=== PATIENT | female | born 1940 | race Caucasian/White ===

== ENCOUNTER → 2016-07-27 | Outpatient (CLI) | payer OTHER, BC | LOC: BHFA 10:00 | PROVIDERS: ATTEND Internal Medicine Cardiovascular Disease | DX: I36.1 Nonrheumatic tricuspid (valve) insufficiency (principal); I25.10 Atherosclerotic heart disease of native coronary artery without angina pectoris ==

== ENCOUNTER 2016-12-15 16:56 | Emergency (ER) | payer OTHER, BC ==
[2016-12-15 17:04] VITALS: BP 143/69; PULSE 70; RESP 17; TEMP 98.2; O2SAT 94
--- NOTE | 2016-12-15 17:29 | EDPHY ---
H & P Stated Complaint: 24 HRS AGO CUT R 3RD DIGIT WITH KNIFE Time Seen by Provider: 12/15/16 17:28 HPI/ROS: HPI: This is a 76-year-old female who presents with Chief Complaint:24 HRS AGO CUT R 3RD DIGIT WITH KNIFE Location: Right 3rd finger Quality: Cut Duration: 24 hours ago Signs and Symptoms: No bleeding, no radiation, no numbness, no weakness, no tingling, no incontinence, no decreased range of motion Timing: Sudden Severity: Mild Context: Patient is left hand dominant, accidentally cut her left middle finger with a new kitchen knife while preparing dinner yesterday evening around 5:00 p.m.. She reports that she flushed it out real good placed off Band-Aid on it. Today she began thinking that she had a finger injury in the past and she was concerned that she may have an infection developing at this time. Reports tetanus up-to-date. 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 CONSTITUTIONAL: Pleasant elderly white female awake and alert, no obvious distress HEENT: Atraumatic and normocephalic, PERRL, EOMI. Tympanic membranes clear. Oropharynx clear, no exudate and moist pink mucosa. Airway patent. No lymphadenopathy. No meningismus. Cardiovascular: Normal S1/S2, regular rate, regular rhythm, without murmur rub or gallop. PULMONARY/CHEST: Symmetrical and nontender. Clear to auscultation bilaterally. Good air movement. No accessory muscle usage. ABDOMEN: Soft, nondistended, nontender, no rebound, no guarding, no peritoneal signs, no masses or organomegaly. No CVAT. EXTREMITIES: 2/2 pulses, left 3rd phalanx over PIP joint superficial horizontal 1 cm laceration the already has epithelialization occurring. DIP/ PIP flexion extension intact. good Light touch sensation. no deformities, no clubbing, no cyanosis or edema. NEUROLOGICAL: no focal neuro deficits. GCS 15. SKIN: Warm and dry, no erythema. no rash. Good capillary refill. 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 - Social History Smoking Status: Never smoked Constitutional: Initial Vital Signs Temperature (C) 36.8 C 12/15/16 17:01 Heart Rate 70 12/15/16 17:01 Respiratory Rate 17 12/15/16 17:01 Blood Pressure 143/69 H 12/15/16 17:01 O2 Sat (%) 94 12/15/16 17:01 O2 Delivery Mode Room Air Allergies/Adverse Reactions: erythromycin base [Erythromycin Base] Allergy (Verified 12/15/16 17:00) Home Medications: Medication Instructions Recorded Aspirin [Aspirin 81mg (OTC)] 81 mg PO DAILY 11/12/11 Cholecalciferol Vit D3 [Vitamin D3 2,000 units PO BID 04/23/13 2000 units (OTC)] Hypromellose [Artificial Tears] 15 ml EACHEYE PRN PRN 04/23/13 MAGNESIUM [Magnesium Oxide 200 mg] 1 tab PO DAILY 04/23/13 [place]-3 Fatty Acids [Fish Oil 1000 2,000 mg PO BID 04/23/13 mg (OTC)] Cephalexin [Keflex (*)] 500 mg PO TID #15 cap 12/15/16 Medical Decision Making Procedures: Procedure: Laceration repair. Verbal consent was obtained from the patient. The simple 1 cm superficial laceration on the left middle finger was NOT anesthetized. The wound was irrigated, draped and explored to its base with a gloved finger. There were no deep structures involved. No tendon injury was identified. No foreign bodies were identified. The wound was repaired with Steri-Strips. The procedure was performed by myself. Procedure: Splint placement. A left finger splint was applied by the Emergency Room cardiopulmonary technician. After application of the splint I returned and re-examined the patient. The splint was adequately immobilizing the joint and distal to the splint the patient's circulation and sensation was intact. ED Course/Re-evaluation: Wound copiously irrigated. No foreign bodies found. Wound occurred greater than 24 hours ago. Laceration is 1 cm incise and very superficial. Decision was made to give Keflex for antibiotics prophylaxis based on her prior history and hand laceration being greater than 24 hours old. Steri-Strips were placed, then finger splint applied to decreased range of motion over joint until fully healed. No signs of neurovascular compromise/tenting of skin/compartment syndrome/ extremities and joints examined above and below area of concern and are neurovascularly intact. Differential Diagnosis: ED differential diagnosis includes but is not limited to laceration, tendon injury, nerve injury. Departure - Departure Disposition: Home, Routine, Self-Care Clinical Impression: Laceration of left middle finger Qualifiers: Encounter type: initial encounter Damage to nail status: without damage Foreign body presence: without foreign body Qualified Code(s): S61.213A - Laceration without foreign body of left middle finger without damage to nail, initial encounter Condition: Good Instructions: Finger Laceration (ED), Steristrips (ED) Additional Instructions: Keep the dressing and splint in place for 3-5 days. Then allow Steri-Strips to follow off on own. Take all antibiotics as directed until complete. Follow up with PCP 5-7 days for wound check if at any time you developed increasing redness, warmth, purulent drainage, decreased sensation. Referrals: Jose Crisostomo MD [Primary Care Provider] - As per Instructions Prescriptions: Cephalexin [Keflex (*)] 500 mg PO TID #15 cap
== END 2016-12-15 18:07 | disposition home or self-care (01) ==
DX: S61.213A Laceration without foreign body of left middle finger without damage to nail, initial encounter (principal); Z79.82 Long term (current) use of aspirin; W26.0XXA Contact with knife, initial encounter
CPT/HCPCS: 99283; L3925

== ENCOUNTER → 2017-08-01 | Outpatient (CLI) | payer OTHER, BC | LOC: BHFA 14:15 | PROVIDERS: ATTEND Internal Medicine Interventional Cardiology | DX: R07.9 Chest pain, unspecified (principal); I45.10 Unspecified right bundle-branch block; I07.1 Rheumatic tricuspid insufficiency ==